=== PATIENT | male | born 1965 | race Caucasian/White ===

== ENCOUNTER 2020-12-25 09:11 | Emergency (ER) | payer MEDICAID ==
[~2020-12-25] VITALS: Ht 182.9 cm; Wt 108.9 kg
[2020-12-25 09:11] VITALS: BP_SYST 157
[2020-12-25 10:04] LABS: BASOPHILS # (AUTO) 0.1 K/uL (0.0-0.2); BASOPHILS % (AUTO) 0.7 % (0.0-2.0); EOSINOPHILS # (AUTO) 0.2 K/uL (0.0-0.4); HEMATOCRIT 41.5 % (36-54); HEMOGLOBIN 14.4 g/dL (14.0-18.0); LYMPHOCYTES # (AUTO) 1.5 K/uL (1.0-5.5); LYMPHOCYTES % (AUTO) 15.8 % (20.5-51.5); MEAN CORPUSCULAR HEMOGLOBIN 32 pg (27-31); MEAN CORPUSCULAR HGB CONC 35 % (32-36); MEAN CORPUSCULAR VOLUME 93 fL (79.0-98.0); MONOCYTES # (AUTO) 0.8 K/uL (0.0-1.0); MONOCYTES % (AUTO) 8.9 % (1.7-9.3); NEUTROPHILS # (AUTO) 6.7 K/uL (1.8-7.7); NEUTROPHILS % (AUTO) 72.6 % (40.0-70.0); PLATELET COUNT (AUTO) 185 K/uL (130-430); RED BLOOD CELL COUNT(AUTO) 4.46 MIL/uL (4.2-6.2); RED CELL DISTRIBUTION WIDTH 13.9 % (9.0-15.0); WHITE BLOOD COUNT (AUTO) 9.2 K/uL (4.8-10.8)
[2020-12-25 10:36] LABS: CALCIUM 8.8 mg/dL (8.4-11.0); CREATININE 0.98 mg/dL (0.55-1.30); POTASSIUM 4.4 mmol/L (3.5-5.1)
[2020-12-25 10:41] LABS: BILIRUBIN,URINE NEGATIVE (NEGATIVE); BLOOD, URINE NEGATIVE (NEGATIVE); CLARITY/URINE CLEAR (CLEAR); COLOR,URINE YELLOW (YELLOW); GLUCOSE,URINE NEGATIVE (NEGATIVE); KETONES,URINE NEGATIVE (NEGATIVE); LEUKOCYTE ESTERASE ,URINE NEGATIVE (NEGATIVE); NITRITE, URINE POSITIVE (NEGATIVE); PROTEIN URINE NEGATIVE (NEGATIVE); UROBILINOGEN,URINE 0.2 (0.2-1.0)
[2020-12-25 10:42] LABS: ALBUMIN 3.5 g/dL (3.4-4.8); TOTAL BILIRUBIN 0.4 mg/dL (0.0-1.0)
[2020-12-25] MEDS ORDERED: CEPH250C PO (11:46)
[2020-12-25 11:55] VITALS: BP_SYST 150
[2020-12-25 12:35] LABS: BACTERIA,URINE MODERATE /HPF (None Seen); RBC,URINE 0-3 /HPF (0-3)
== END 2020-12-25 11:55 | disposition home or self-care (01) ==
LOC: SED 09:11
DX: N50.3 Cyst of epididymis (principal); N44.2 Benign cyst of testis; N39.0 Urinary tract infection, site not specified; Z79.899 Other long term (current) drug therapy
CPT/HCPCS: 36415; 76870-TC; 80053; 81000; 83605; 83690; 85025; 87086; 99284

== ENCOUNTER 2020-12-30 08:49 | Emergency (ER) | payer MEDICAID ==
[~2020-12-30] VITALS: Ht 182.9 cm; Wt 108.9 kg
[~2020-12-30 08:49] MED LIST: CEPH250C PO
--- NOTE | 2020-12-30 09:00 | NUR ---
Patient to ER bed 8 to gown for evaluation. Side rails up. Report given to HARINI Win.
--- NOTE | 2020-12-30 09:02 | NUR ---
ER at bedside examining patient.
[2020-12-30 09:06] VITALS: BP_SYST 145
--- NOTE | 2020-12-30 09:10 | NUR ---
Pt. came in with c/o pain and swelling to right testicle, was here [facility] and on antibiotics for UTI which he thinks has improved but states the pain in testicle 2/10 while at rest but when goes to stand or change positions /10.
[2020-12-30] MEDS ORDERED: CEPH250C PO (09:15)
[2020-12-30] MEDS ORDERED: IBUP-1969 PO (09:15)
[2020-12-30 09:27] VITALS: BP_SYST 145
--- NOTE | 2020-12-30 09:28 | NUR ---
Patient given written and verbal discharge instructions and verbalizes understanding. ER DR. Manning discussed with patient the results and treatment provided. Patient in stable condition. ID arm band removed. Rx of Keflex and Motrin given. Patient educated on pain management and to follow up with PMD. Pain Scale 2. Opportunity for questions provided and answered. Medication side effect fact sheet provided.
== END 2020-12-30 09:28 | disposition home or self-care (01) ==
LOC: SED 08:49
DX: R59.0 Localized enlarged lymph nodes (principal); Z79.899 Other long term (current) drug therapy
CPT/HCPCS: 81002; 99283

== ENCOUNTER 2021-08-22 13:04 | Emergency (ER) | payer MEDICAID ==
[~2021-08-22] VITALS: Ht 182.9 cm; Wt 117.9 kg
[~2021-08-22 13:04] MED LIST changes: +IBUP-1969 PO
[2021-08-22 13:34] VITALS: BP_SYST 150
--- NOTE | 2021-08-22 13:35 | NUR ---
Patient to ER bed 3 to gown for evaluation. Side rails up
--- NOTE | 2021-08-22 13:41 | NUR ---
PT C/O HYPERTENSION AND CHEST PRESSURE X 1.5 HR.
--- NOTE | 2021-08-22 14:08 | NUR ---
DR. sewell at bedside to examine pt.
[2021-08-22 14:44] LABS: BASOPHILS # (AUTO) 0.1 K/uL (0.0-0.2); BASOPHILS % (AUTO) 1.2 % (0.0-2.0); EOSINOPHILS # (AUTO) 0.3 K/uL (0.0-0.4); EOSINOPHILS % (AUTO) 5.5 % (0.0-4.0); HEMATOCRIT 45.9 % (36-54); HEMOGLOBIN 15.7 g/dL (14.0-18.0); LYMPHOCYTES # (AUTO) 1.5 K/uL (1.0-5.5); LYMPHOCYTES % (AUTO) 25.1 % (20.5-51.5); MEAN CORPUSCULAR HEMOGLOBIN 32 pg (27-31); MEAN CORPUSCULAR HGB CONC 34 % (32-36); MEAN CORPUSCULAR VOLUME 93 fL (79.0-98.0); MONOCYTES # (AUTO) 0.5 K/uL (0.0-1.0); MONOCYTES % (AUTO) 8.9 % (1.7-9.3); NEUTROPHILS # (AUTO) 3.6 K/uL (1.8-7.7); NEUTROPHILS % (AUTO) 59.3 % (40.0-70.0); PLATELET COUNT (AUTO) 207 K/uL (130-430); RED BLOOD CELL COUNT(AUTO) 4.92 MIL/uL (4.2-6.2); RED CELL DISTRIBUTION WIDTH 13.7 % (9.0-15.0); WHITE BLOOD COUNT (AUTO) 6.1 K/uL (4.8-10.8)
[2021-08-22 14:53] LABS: ANION GAP 4 (5-15); CHLORIDE 104 mmol/L (98-107); CREATININE 1.13 mg/dL (0.55-1.30); GLUCOSE 92 mg/dL (70-99); POTASSIUM 4.2 mmol/L (3.5-5.1); SODIUM SERUM 137 mmol/L (136-145); UREA NITROGEN, BLOOD 16 mg/dL (8-21)
[2021-08-22 14:57] LABS: GFR AFRICAN AMERICAN 87 mL/min (>90)
[2021-08-22 15:00] LABS: ALANINE AMINOTRANSFERASE 24 U/L (12-78); ALBUMIN 3.6 g/dL (3.4-4.8); ASPARTATE AMINOTRANSFERASE 19 U/L (10-37); TOTAL BILIRUBIN 0.1 mg/dL (0.0-1.0)
[2021-08-22 15:21] VITALS: BP_SYST 132
--- NOTE | 2021-08-22 15:21 | NUR ---
Patient given verbal discharge instructions by md and verbalizes understanding. Patient left without discharge papers. ER MD discussed with patient the results and treatment provided. Patient in stable condition. ID arm band removed. No rx given. Patient educated on pain management and to follow up with PMD. Pain Scale 0/10 Opportunity for questions provided and answered.
== END 2021-08-22 15:21 | disposition home or self-care (01) ==
LOC: SED 13:04
DX: R07.89 Other chest pain (principal); F43.9 Reaction to severe stress, unspecified; I10 Essential (primary) hypertension; F17.200 Nicotine dependence, unspecified, uncomplicated; Z71.6 Tobacco abuse counseling
CPT/HCPCS: 36415; 71045; 80053; 84484; 85025; 93005; 99285